=== PATIENT | male | born 1995 | race Caucasian/White ===

== ENCOUNTER 2025-03-19 09:06 | Day surgery (SDC) | payer BC ==
[2025-03-16 08:27] VITALS: BMI 32.9
[2025-03-19] MEDS ORDERED: Lidocaine 1% PF 5 ML VIAL ONE (09:47)
[2025-03-19] MEDS ORDERED: Rocuronium Bromide 10 MG/ML (10ML VIAL) ONE (09:47)
[2025-03-19] MEDS ORDERED: PROPOFOL 20 ML ONE (09:47)
[2025-03-19] MEDS ORDERED: Bupivacaine HCl 0.5%/Epinephrine 1:200,000/PF 30 ml Vial ONE (09:55)
[2025-03-19] MEDS ORDERED: CEFAZOLIN 2 GM VIAL ONE (10:04)
[2025-03-19] MEDS ORDERED: Ondansetron PF 4 MG/2 ML Vial ONE (10:25)
[2025-03-19] MEDS ORDERED: SUGAMMADEX SODIUM 200 MG/2 ML VIAL ONE (11:06)
[2025-03-19] MEDS ORDERED: HYDROcodone/Acetaminophen 5/325 mg Tablet ONE (12:08)
== END 2025-03-19 13:00 | disposition home or self-care (01) ==
LOC: CSHSDC 09:06
PROVIDERS: ATTEND Surgery
PROC: 0WUF4JZ Supplement Abdominal Wall with Synthetic Substitute, Percutaneous Endoscopic Approach (ICD-10-PCS; principal; 2025-03-19)
DX: K43.9 Ventral hernia without obstruction or gangrene (principal); E66.9 Obesity, unspecified; Z68.32 Body mass index [BMI] 32.0-32.9, adult
CPT/HCPCS: C1781; J1100; J2405; J2704; J3010; S2900